=== PATIENT | female | born 1995 | race Caucasian/White ===

== ENCOUNTER 2017-07-13 20:26 | Emergency (ER) | payer OTHER ==
[2017-07-13 20:31] VITALS: BP 131/74; BMI 31.8
[2017-07-13] MEDS ORDERED: NS 1000 ML 1,000 ML IV ONE (21:38)
[2017-07-13] MEDS ORDERED: TORADOL 30 MG VIAL IVP ONE (21:38)
--- NOTE | 2017-07-13 21:38 | DR.GENAD ---
HPI - PCP Primary Care Physician: NFD - Complaint/Symptoms Chief Complaint Doctors Comments: Patient admits to flue like symptoms for three days. She has been taking over the counter medications. Chief Complaint:: FLU LIKE S/S, BODY ACHES, SORE THROAT, FEVER , NAUSEA, HEADACHE, EARS HURT SINCE LAST FRIDAY. Self Treatment fo Chief Complaint: TYLENOL COLD AND FLU - Source History Provided: Patient - Mode of Arrival Mode of Arrival: Ambulatory - Timing Onset of Chief Complaint: 07/10/17 PMH - PMH Past Medical History: No Past Surgical History: Yes Surgical History: Appendectomy, , Tonsillectomy - Family History History of Family Medical Conditions: No - Social History Does patient currently use any type of tobacco product: No Have you used tobacco products in the last 12 months: No Type of Tobacco Use: None Does any household member use tobacco: No Alcohol Use: None Do you use any recreational Drugs:: No Lives With: Spouse, Family Lives Where: Home - infectious screening Have you traveled outside the country in the last 6 months?: No Isolation: Standard ROS - Review of Systems Eyes: No Symptoms Reported ENTM: No Symptoms Reported Respiratoy: No Symptoms Reported Cardiovascular: No Symptoms Reported Gastrointestinal/Abdominal: No Symptoms Reported Genitourinary: No Symptoms Reported Neurological: No Symptoms Reported Musculoskeletal: No Symptoms Reported Integumentary: No Symptoms Reported Hematologic/Lymphatic: No Symptoms Reported Endocrine: No Symptoms Reported Psychiatric: No Symptoms Reported All Other Systems: Reviewed and Negative PE - Vital Signs Vitals: Temperature 102.4 F Pulse Rate 120 Respiratory Rate 16 Blood Pressure 131/74 O2 Sat by Pulse Oximetry 100 - General General Appearance: Alert, In No Apparent Distress - Head Head Exam: Normal Inspection, Atraumatic - Eyes Eye exam: Normal Appearance, PERRL, EOMI - ENT ENT Exam: Normal Exam External Ear Exam: Normal External Inspection TM/Canal Exam: Bilateral Normal Nose Exam: Normal Nose Exam, Sinus Tenderness Mouth Exam: Normal Inspection Throat Exam: Normal Inspection - Neck Neck Exam: Normal Inspection, Full ROM - Chest Chest Inspection: Normal Inspection, Symmetric Chest Wall Rise - Respiratory Respiratory Exam: Normal Lung Sounds Bilat Respiratory Exam: Bilateral Clear to Auscultation - Cardiovascular Cardiovascular Exam: Regular Rate, Normal Rhythm - Abdominal Exam Abdominal Exam: Normal Inspection Abdominal Tenderness: negative: RUQ, RLQ, LUQ, LLQ, Epigastrium, Suprapubic, Diffuse, Mild, Moderate, Severe, Other - Extremities Extremities Exam: Normal Inspection, Full ROM - Back Back Exam: Normal Inspection, Full ROM - Neurologic Neurological Exam: Alert, Oriented X3, CN II-XII Intact - Psychiatric Psychiatric Exam: Normal Affect, Normal Mood - Skin Skin Exam: Warm, Dry, Intact Course - Reevaluation 1st: Unchanged ROR - Labs Reviewed Laboratory Results Reviewed?: Yes (influenza negative) Laboratory: Influenza Type A (PCR) Negative (NEGATIVE) 07/13/17 21:20 Influenza Type B (PCR) Negative (NEGATIVE) 07/13/17 21:20 S. pyogenes (TEM-PCR) Not detected (NOT DETECT) 07/13/17 21:20 - Diagnosis Discharge Problem: Influenza-like illness - Discharge Plan Condition: Stable - Follow ups/Referrals Follow ups/Referrals: NFD,None [Primary Care Provider] - 3 days - Instructions
[2017-07-13] MEDS ORDERED: NS 1000 ML 1,000 ML ONE (21:41)
[2017-07-13] MEDS ORDERED: TORADOL 30 MG VIAL ONE (21:41)
== END 2017-07-13 22:42 | disposition home or self-care (01) ==
LOC: ER 20:26
DX: R50.9 Fever, unspecified (principal); J02.9 Acute pharyngitis, unspecified; R51 Headache; R11.0 Nausea
CPT/HCPCS: 87502; 87651; 96365; 96367; 96374; 99282; 99283; A4222; J1885